=== PATIENT | male | born 1980 | race African-American/Black ===

== ENCOUNTER 2018-09-21 20:37 | Emergency (ER) | payer OTHER ==
[~2018-09-21] VITALS: Ht 180.3 cm; Wt 112.5 kg
[2018-09-21] MEDS ORDERED: NAPR500T8 PO (20:58)
[2018-09-21] MEDS ORDERED: XOPENEX HFA15 GM IH (20:58)
[2018-09-21] MEDS ORDERED: CICL6.1H3 IH (20:58)
[2018-09-21] MEDS ORDERED: sulfasalazine (20:58)
[2018-09-21] MEDS ORDERED: NEOMYCIN/BACITRAC/POLY TOPICAL OINTMENT 28GM TUBE. TP ONE (21:30)
[2018-09-21] MEDS ORDERED: DIPHTH,PERTUSS(ACELL),TET TOX 0.5 ML DISP.SYRIN. VAX IM ONE (21:30)
[2018-09-21] MEDS ORDERED: FLUORESCEIN 1MG EYE STRIP. OD ONE (21:30)
[2018-09-21] MEDS ORDERED: TETRACAINE 0.5% OPHTH SOLUTION 4ML BOTTLE. OD ONE (21:30)
[2018-09-21] MEDS ORDERED: NEOMY/BACITR/POLYMYXIN OINT PACKET. TP ONE ×2 (22:02→22:15)
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
[2018-09-21] MEDS ORDERED: NEOM10DR32 EACH EAR (22:50)
[2018-09-21] MEDS ORDERED: HYDR-3165 PO (22:50)
[2018-09-21] MEDS ORDERED: AMOX1TAB61 PO (22:50)
[2018-09-21 22:56] VITALS: BP 167/91
[2018-09-21] MEDS ORDERED: AMOXICILLIN/K CLAV 875/125MG TABLET. PO ONE (23:30)
[2018-09-21] MEDS ORDERED: MORPHINE SULFATE 4 MG/ML DISP.SYRIN. IM ONE (23:30)
== END 2018-09-21 23:40 | disposition home or self-care (01) ==
LOC: EEVIPCON 20:37 → ER 20:37
DX: S02.611A Fracture of condylar process of right mandible, initial encounter for closed fracture (principal); S09.21XA Traumatic rupture of right ear drum, initial encounter; S63.622A Sprain of interphalangeal joint of left thumb, initial encounter; S00.83XA Contusion of other part of head, initial encounter; J45.909 Unspecified asthma, uncomplicated; H11.31 Conjunctival hemorrhage, right eye; Y04.0XXA Assault by unarmed brawl or fight, initial encounter; Y93.89 Activity, other specified; Y92.89 Other specified places as the place of occurrence of the external cause; Y99.8 Other external cause status
CPT/HCPCS: 70450; 70486; 72125; 90471; 90715; 96372; 99284; J2270; J3010